=== PATIENT | female | born 1990 | race Caucasian/White ===

== ENCOUNTER 2018-07-28 21:25 | Emergency (ER) | END 2018-07-28 23:25 | disposition home or self-care (01) ==

== ENCOUNTER 2018-10-20 13:19 | Outpatient (CLI) | payer MEDICAID ==
[~2018-10-20] VITALS: Ht 165.1 cm; Wt 77.5 kg
[2018-10-20 13:38] VITALS: Ht 165.1 cm; Wt 77.5 kg
[2018-10-20 13:39] VITALS: BP 109/58; PULSE 81; RESP 20
[2018-10-20] MEDS ORDERED: LEVO25TA6 PO (13:42)
[2018-10-20] MEDS ORDERED: PREN-6 PO (13:42)
[2018-10-20] MEDS ORDERED: FOLI-49 PO (13:44)
[2018-10-20] MEDS ORDERED: FERR325T5 PO (13:44)
--- NOTE | 2018-10-20 14:52 | TRIAGE ---
OB Triage Datetime Report Generated by CPN: 10/20/2018 14:51 Datetime: 10/20/2018 14:26 Stage of : OB Triage Labor Evaluation Frequency: NONE Monitor Mode: External Monitor Mode: External US Comments: HEART TONES AT 140 BPM. Datetime: 10/20/2018 14:12 Assessment Type: Triage Maternal Assessment Level of Consciousness: Fully Conscious DTR's/Clonus: DTRs 2+; No Clonus Headache: Denies Blurred Vision: No Respiratory Effort: Unlabored; Regular Rhythm; Equal Expansion Breath Sounds, Left: Clear and Equal Breath Sounds, Right: Clear and Equal Nausea/Vomiting: Present RUQ Epigastric Pain: Denies Lower Extremities Edema: None Degree: None Upper Extremities Edema: None Degree: None Facial Edema: None Fall Risk Assessment History of Falling: (0) No Secondary Diagnosis: (0) No Ambulatory Aid: (0) Bedrest/Nurse Assist IV Therapy: (0) No Gait: (0) Normal/Bedrest/Immobile Mental Status: (0) Oriented to Own Ability Fall Score: 0 Fall Risk Score Definition: No Risk: No action required Datetime: 10/20/2018 13:46 Time of Arrival: 10/20/2018 13:46 EGA: 21.6 Arrived By: Wheelchair Arrived From: Emergency Dept Chief Complaint: nausea, no vomiting, DFM Movement: Absent Contractions: Denies/Absent Rupture of Membranes: Denies Vaginal Bleeding: None Vaginal Discharge: Denies Recent Sexual Intercouse: Denies Patient Complaints: Nausea Additional Patient Complaints: NONE Time Provider Notified: 10/20/2018 14:26 Provider Notified: talon Initial Plan: MONITOR Datetime: 10/20/2018 13:40 Labor Evaluation Frequency: 0 Monitor Mode: External Resting Tone Hopkins: Relaxed Heart Rate FHR Baseline Rate: 150 Comments: aga Datetime: 10/20/2018 13:37 Pain Assessment Pain Presence: None/Denies
[2018-10-20] MEDS ORDERED: ACET500C5 PO (16:05)
[2018-10-20] MEDS ORDERED: METO10TA92 PO (16:06)
[2018-10-20] MEDS ORDERED: PREN-93 PO (16:48)
== END 2018-10-20 14:55 | disposition home or self-care (01) ==
LOC: L-D 13:19 → OBT 13:19
PROVIDERS: ATTEND Obstetrics & Gynecology
DX: O36.8120 Decreased fetal movements, second trimester, not applicable or unspecified (principal); Z3A.21 21 weeks gestation of pregnancy
CPT/HCPCS: G0463